=== PATIENT | female | born 1990 ===

== ENCOUNTER 2021-10-30 06:00 | Day surgery (SDC) | payer OTHER ==
[2021-10-30] MEDS ORDERED: NEXIUM 24HR20 M1 PO (08:34)
== END 2021-10-30 10:10 | disposition home or self-care (01) ==
LOC: AMB-ENDOS 06:00
PROVIDERS: ATTEND Surgery
DX: K29.70 Gastritis, unspecified, without bleeding (principal); K44.9 Diaphragmatic hernia without obstruction or gangrene; E66.9 Obesity, unspecified; I10 Essential (primary) hypertension